=== PATIENT | male | born 2000 | race Caucasian/White ===

== ENCOUNTER 2021-06-03 02:34 | Emergency (ER) | payer BC ==
[2021-06-03] MEDS ORDERED: Ondansetron PF 4 MG/2 ML Vial ONE (03:01)
[2021-06-03 03:11] LABS: ALT (SGPT) 44 U/L (8-55); AST (SGOT) 29 U/L (5-34); Albumin 4.5 g/dL (3.5-5.0); Alkaline Phosphatase 84 U/L (40-110); Anion Gap 19 mmol/L (10-20); BUN (Urea Nitrogen) 20 mg/dL (8.9-20.6); Bilirubin, Total 0.9 mg/dL (0.2-1.2); Calc. Creatinine Clearance 0 mL/min (70-130); Calcium 9.7 mg/dL (7.8-10.44); Carbon Dioxide 19 mmol/L (22-29); Chloride 104 mmol/L (98-107); Globulin 3.7 g/dL (2.4-3.5); Glucose 114 mg/dL (70-105); Lipase 15 U/L (8-78); Potassium 3.9 mmol/L (3.5-5.1); Protein, Total 8.2 g/dL (6.0-8.3); Sodium 138 mmol/L (136-145)
[2021-06-03 03:16] LABS: #Monocytes 0.7 10x3/uL (0.0-1.1); #Neutrophils 13.8 10x3/uL (1.5-8.4); %Basophils 0.3 % (0.0-2.0); %Eosinophils 0.3 % (0.0-6.0); %Lymphocytes 4.8 % (18.0-47.0); %Monocytes 4.6 % (0.0-10.0); %Neutrophils 89.5 % (40.0-75.0); Hemoglobin 15.8 g/dL (13.5-17.5); Mean Corpuscular HGB CONC 34.2 g/dL (32.0-36.0); Mean Corpuscular Volume 87.7 fl (81.2-95.1); Mean Platelet Volume 9.4 fl (7.4-10.4); Platelet Count 228 10x3/uL (150-450); RBC Distribution Width 12.4 % (11.5-14.5); Red Blood Cell (RBC) Count 5.27 10x6/uL (4.32-5.72); White Blood Cell (WBC) Count 15.4 10x3/uL (3.5-10.5)
[2021-06-03] MEDS ORDERED: Iopamidol 300 61% 100 ML VIAL FS ONE (09:06)
== END 2021-06-03 05:22 | disposition home or self-care (01) ==
LOC: CSHERS 02:34
DX: E86.0 Dehydration (principal); K59.00 Constipation, unspecified; Q43.3 Congenital malformations of intestinal fixation
CPT/HCPCS: 74177; 80053; 83690; 85025; 96374; J2405; Q9967